=== PATIENT | male | born 1945 | race Caucasian/White ===

== ENCOUNTER 2020-05-18 10:32 | Inpatient (IN) | payer OTHER, SELFPAY ==
[~2020-05-18] VITALS: Ht 175.3 cm; Wt 100.7 kg
[2020-05-18 10:36] VITALS: BP_SYST 126
--- NOTE | 2020-05-18 10:40 | NUR ---
Pt brought to ER via BLS ambulance for SOB at home, pt currently resting in gurney O2 sat WNL on RA, no distress noted, MD stephanie gonzales
--- NOTE | 2020-05-18 10:40 | NUR ---
Placed in room 01 . Placed on bus escort, blood pressure machine and pulse oximeter. To gown for exam. Side rails up.
--- NOTE | 2020-05-18 10:50 | NUR ---
ER at bedside examining patient.
--- NOTE | 2020-05-18 11:11 | NUR ---
Son of pt called in regards to pt status. Requested call for any info or update. TRINA HOWARD: [phone]
--- NOTE | 2020-05-18 11:18 | NUR ---
ER at bedside examining patient.
[2020-05-18] MEDS ORDERED: KETOROLAC TROMETHAMINE 30 MG VIAL IVP ONE (11:30)
[2020-05-18 11:51] LABS: ANION GAP 8 (5-15); CALCIUM 9.2 mg/dL (8.4-11.0); CHLORIDE 105 mmol/L (98-107); CREATININE 0.98 mg/dL (0.55-1.30); GLUCOSE 116 mg/dL (70-99); POTASSIUM 3.7 mmol/L (3.5-5.1); SODIUM SERUM 141 mmol/L (136-145); UREA NITROGEN, BLOOD 16 mg/dL (8-21)
[2020-05-18 11:56] LABS: ALANINE AMINOTRANSFERASE 17 U/L (12-78); ALBUMIN 3.4 g/dL (3.4-4.8); ASPARTATE AMINOTRANSFERASE 13 U/L (10-37); TOTAL BILIRUBIN 0.7 mg/dL (0.0-1.0)
[2020-05-18 12:00] LABS: INR 1.1 (0.80-1.20); PROTHROMBIN TIME 10.9 SECS (9.5-12.5)
[2020-05-18 12:02] LABS: BASOPHILS % (AUTO) 0.3 % (0.0-2.0); EOSINOPHILS % (AUTO) 0.1 % (0.0-4.0); HEMATOCRIT 41.3 % (36-54); HEMOGLOBIN 13.8 g/dL (14.0-18.0); LYMPHOCYTES # (AUTO) 0.3 K/uL (1.0-5.5); LYMPHOCYTES % (AUTO) 2.4 % (20.5-51.5); MEAN CORPUSCULAR HEMOGLOBIN 30 pg (27-31); MEAN CORPUSCULAR HGB CONC 33 % (32-36); MEAN CORPUSCULAR VOLUME 89 fL (79.0-98.0); MONOCYTES # (AUTO) 0.8 K/uL (0.0-1.0); MONOCYTES % (AUTO) 7.1 % (1.7-9.3); NEUTROPHILS # (AUTO) 10.7 K/uL (1.8-7.7); NEUTROPHILS % (AUTO) 90.1 % (40.0-70.0); PLATELET COUNT (AUTO) 187 K/uL (130-430); RED BLOOD CELL COUNT(AUTO) 4.65 MIL/uL (4.2-6.2); RED CELL DISTRIBUTION WIDTH 15.1 % (9.0-15.0); WHITE BLOOD COUNT (AUTO) 11.9 K/uL (4.8-10.8)
--- NOTE | 2020-05-18 12:23 | NUR ---
Pt unable to urinate into urinal, refused catheter at this time MD aware.
[2020-05-18 12:25] LABS: C-REACTIVE PROTEIN QUANT 3.1 mg/dL (0-0.5)
[2020-05-18 12:59] LABS: ERYTHROCYTE SEDIMENTATION RATE 5 MM/HR (0-15)
[2020-05-18] MEDS ORDERED: PIPERACILLIN/TAZO 3.375 GM in NS 50 ML IV ONE (13:00)
[2020-05-18] MEDS ORDERED: PIPERACILLIN/TAZOBACTAM 3.375 GM/VIAL (ZOSYN) IV ONE ×2 (13:25)
[2020-05-18] MEDS ORDERED: NACL 0.9% 1,000 ML IV ONE (13:30)
[2020-05-18] MEDS ORDERED: INSULIN REGULAR, HUMAN 100 UNITS/ML, 10 ML VIAL (humuLIN R) SUBCUT PRN ×2 (13:30→16:00)
[2020-05-18] MEDS ORDERED: FURO-150 PO (13:45)
[2020-05-18] MEDS ORDERED: METF-510 PO (13:45)
[2020-05-18] MEDS ORDERED: MONT10TA27 PO (13:45)
[2020-05-18] MEDS ORDERED: TOPXL100 PO (13:45)
[2020-05-18] MEDS ORDERED: OMEP20CA15 PO (13:45)
[2020-05-18] MEDS ORDERED: WHEY237L PO (13:45)
[2020-05-18] MEDS ORDERED: MELA1TAB29 PO (13:45)
[2020-05-18] MEDS ORDERED: TAMS-11 PO (13:45)
[2020-05-18] MEDS ORDERED: NIFE60TA83 PO (13:45)
[2020-05-18] MEDS ORDERED: CAT.1 PO (13:45)
[2020-05-18] MEDS ORDERED: GLIP5TAB26 PO (13:45)
[2020-05-18] MEDS ORDERED: POTA20TA83 PO (13:45)
--- NOTE | 2020-05-18 13:46 | NUR ---
Medication reconciliation completed with information provided by patient . Any prior medication reconciliation on file was reviewed and corrected.
[2020-05-18 13:47] LABS: BILIRUBIN,URINE NEGATIVE (NEGATIVE); BLOOD, URINE NEGATIVE (NEGATIVE); CLARITY/URINE CLEAR (CLEAR); COLOR,URINE YELLOW (YELLOW); GLUCOSE,URINE NEGATIVE (NEGATIVE); KETONES,URINE NEGATIVE (NEGATIVE); LEUKOCYTE ESTERASE ,URINE NEGATIVE (NEGATIVE); NITRITE, URINE NEGATIVE (NEGATIVE); PH,URINE 5.5 (5.0-8.0); PROTEIN URINE NEGATIVE (NEGATIVE); UROBILINOGEN,URINE 0.2 (0.2-1.0)
[2020-05-18 14:12] LABS: BARBITURATE, URINE NEGATIVE (NEG <=200); BENZODIAZEPINE, URINE NEGATIVE (NEG <=150); CANNABINOID, URINE NEGATIVE (NEG <=50); COCAINE, URINE NEGATIVE (NEG <=150); METHAMPHETAMINES SCREEN,URINE NEGATIVE (NEG <=500); OPIATE, URINE NEGATIVE (NEG <=100); PHENCYCLIDINE SCREEN,URINE NEGATIVE (NEG <=25); UR TRICYCLIC ANTIDEPRESSANTS NEGATIVE (NEG <=300); URINE AMPHETAMINE NEGATIVE (NEG <=500); URINE METHADONE NEGATIVE (NEG <=200); URINE OXYCODONE SCREEN NEGATIVE (NEG <=100); URINE PROPOXYPHENE SCREEN NEGATIVE (NEG <=300)
[2020-05-18] MEDS ORDERED: NACL 0.9% 2,000 ML IV ONE (15:30)
--- NOTE | 2020-05-18 15:30 | NUR ---
Pt resting in [facility] VSS no distress noted.
--- NOTE | 2020-05-18 15:38 | NUR ---
ADMISSION NOTE Received patient from ER via anny, received report from WILLIE DAVIS. Patient admitted with diagnosis of CELLULITUS /SEPSIS. Patient oriented to hospital routine, call light, toileting and safety-patient verbalized understanding.
[2020-05-18 15:57] VITALS: BP_SYST 135
--- NOTE | 2020-05-18 16:05 | NUR ---
Patient will be admitted to care of [facility]. Admitted to TELE unit. Will go to room 110B. Belongings list completed. Complete and up to date summary report printed. SBAR report to be given at bedside with opportunity for questions.
--- NOTE | 2020-05-18 16:30 | NUR ---
ADMISSION: RECEIVED PT A/A/OX4, DX:RISK FOR FLUID VOLUME EXCESS, R/T RIGHT LOWER EXTREMITY CELLULITIS, SEPSIS, AFEBRILE, VSS, NO C/O PAIN OR DISCOMFORT, BREATH SOUNDS ARE CLEAR, BREATHING UNLABORED, RIGHT LEG EDEMATOUS, REDNESS AND WARMTH, ELEVATED ON PILLOW, IV SITE INTACT, PATENT NO REDNESS OR SWELLING, ORIENTED TO UNIT, CALL LIGHT PLACED WITHIN REACH, WILL CONT' TO MONITOR AND ASSESS.
--- NOTE | 2020-05-18 17:30 | NUR ---
GLUCOSE MONITORING: BLOOD SUGAR LEVEL=62, 1 AMP DEXTROSE GIVEN IVP, , POSITIONED UPRIGHT WITH HOB 90 DEGREE, DINNER MEAL PLACED IN REACH, WILL CONT' TO MONITOR AND ASSESS.
[2020-05-18] MEDS: DEXTROSE 50% JECT 50 ML DISP.SYRIN IVP PRN (17:39)
[2020-05-18] MEDS: MONTELUKAST 10 MG TABLET PO SCH (17:39)
[2020-05-18] MEDS ORDERED: QUEtiapine FUMARATE 25 MG TABLET PO SCH (18:00)
--- NOTE | 2020-05-18 18:00 | NUR ---
VISIT: AT BEDSIDE FOR ASSESSMENT OF PT, NEW ORDERS GIVEN, WILL CONT' WITH POC.
--- NOTE | 2020-05-18 18:01 | NUR ---
CONSULTATION PAGED REASON FOR CONSULTATION:CELLULITIS WAS CONSULT CALLED?Y PERSON WHO WAS NOTIFIED:LIBRADO CONSULTING PHYSICIAN:QUINCY FELICIANO WIRELESS TEAM MEMBER SPECIALTY:ID WIRELESS TEAM MEMBER PHONE NUMBER:[phone] REQUESTING PHYSICIAN:ADEN LUGO
--- NOTE | 2020-05-18 19:15 | NUR ---
OPENING NOTE BEDSIDE REPORT RECEIVED FROM DAYSHIFT NURSE. PATIENT RECEIVED LYING IN BED, EYES CLOSED, APPEARS TO BE ASLEEP. NO S/S OF ACUTE DISTRESS NOTED. BREATHING IS EVEN AND UNLABORED. IVF INFUSING WELL, IV SITE IS PATENT, NO SIGNS OF INFILTRATION OR INFECTION NOTED. HOB RAISED. BED IS LOCKED AND AT LOWEST POSITION. WILL CONTINUE TO MONITOR.
[2020-05-18] MEDS ORDERED: FLU VACC QS2020-21(65UP)/PF 0.7 ML/SYRINGE I.M. PRN (19:30)
[2020-05-18 20:00] VITALS: BP_SYST 106
--- NOTE | 2020-05-18 20:30 | NUR ---
RETURNED FROM RADIOLOGY PATIENT RETURNED FROM LUNG SCAN, VIA WHEELCHAIR. PATIENT ASSISTED BACK TO BED. PATIENT TOLERATED WELL. NO SINGS OF DISCOMFORT. PATIENT DENIES PAIN. IVF INFUSING WELL. ALL NEEDS MET. BED ALARM ON. WILL CONTINUE TO MONITOR.
[2020-05-18] MEDS: NACL 0.9% 1,000 ML IV SCH (20:52)
[2020-05-18] MEDS: MELATONIN 3 MG TABLET PO SCH (20:53)
[2020-05-18] MEDS: PYRIDOXINE HCL 50 MG TABLET PO SCH (20:53)
[2020-05-18] MEDS: TAMSULOSIN HCL 0.4 MG CAP PO SCH (20:53)
[2020-05-18] MEDS: cloNIDine HCL 0.1 MG TABLET PO SCH (20:54)
[2020-05-18] MEDS: ENOXAPARIN SODIUM 40 MG/0.4 ML SYRINGE SUBCUT SCH (20:54)
[2020-05-18] MEDS ORDERED: glipiZIDE XL 5 MG TAB ( GLUCOTROL XL) PO SCH (21:00)
--- NOTE | 2020-05-18 22:18 | NUR ---
ROUNDS PATIENT IN BED, SLEEPING COMFORTABLY. NO S/S OF ACUTE DISTRESS NOTED. BREATHING EVEN AND UNLABORED, HOB RAISED. IVF INFUSING WELL. BED ALARM ON. WILL CONTINUE TO MONITOR.
--- NOTE | 2020-05-18 23:40 | NUR ---
NEW IV PATIENT PULLED OUT PREVIOUS IV SITE, CATHETER FULLY INTACT, NO ACTIVE BLEEDING NOTED. NEW IV INSERTED AT RIGHT WRIST, 22 GAUGE. PATIENT TOLERATED WELL. IVF INFUSING. ALL NEEDS MET. BED ALARM ON. WILL CONTINUE TO MONITOR.
[2020-05-19] VITALS: BP_SYST 110
[2020-05-19] MEDS ORDERED: VANCOMYCIN HCL 1 GM/NS PREMIX 250 ML IV ONE (00:30)
[2020-05-19] MEDS: PIPERACILLIN/TAZO 3.375/DEX-IS 50 ML IV SCH ×4 (00:51→23:05)
[2020-05-19] MEDS ORDERED: PIPERACILLIN/TAZOBACTAM 3.375 GM/VIAL (ZOSYN) IV ONE (00:54)
[2020-05-19] MEDS ORDERED: VANCOMYCIN HCL 1000 MG/VIAL IV ONE (00:55)
--- NOTE | 2020-05-19 01:05 | NUR ---
ROUNDS PATIENT IN BED, ASLEEP. NO SIGNS OF DISCOMFORT. HOB RAISED. CHEST RISE AND FALL EVEN BILATERALLY. IV ANTIBIOTIC INFUSING WELL. IV SITE PATENT. BED ALARM ON. WILL CONTINUE TO MONITOR.
--- NOTE | 2020-05-19 03:00 | NUR ---
ROUNDS PATIENT IN BED, REPOSITIONING SELF, ASLEEP. NO S/S OF ACUTE DISTRESS NOTED. BREATHING EVEN AND UNLABORED. IVF INFUSING WELL. BED ALARM ON. WILL CONTINUE TO MONITOR.
[2020-05-19] MEDS: NACL 0.9% 1,000 ML IV SCH ×3 (03:45→18:25)
--- NOTE | 2020-05-19 05:00 | NUR ---
BLOOD DRAW/NIMA CARE ENGINEERING PROGRAM MANAGER AT BEDSIDE, DRAWING BLOOD, PATIENT COOPERATIVE. PATIENT CLEANED AT THIS TIME BY RN. PATIENT TOLERATED WELL. IVF INFUSING WELL. ALL NEEDS MET. BED ALARM ON. WILL CONTINUE TO MONITOR.
[2020-05-19 06:14] LABS: BASOPHILS # (AUTO) 0.2 K/uL (0.0-0.2); BASOPHILS % (AUTO) 1.4 % (0.0-2.0); EOSINOPHILS % (AUTO) 0.1 % (0.0-4.0); HEMATOCRIT 36.2 % (36-54); LYMPHOCYTES % (AUTO) 7.8 % (20.5-51.5); MEAN CORPUSCULAR HEMOGLOBIN 29 pg (27-31); MEAN CORPUSCULAR HGB CONC 33 % (32-36); MEAN CORPUSCULAR VOLUME 89 fL (79.0-98.0); MONOCYTES # (AUTO) 1.3 K/uL (0.0-1.0); MONOCYTES % (AUTO) 10.1 % (1.7-9.3); NEUTROPHILS # (AUTO) 10.3 K/uL (1.8-7.7); NEUTROPHILS % (AUTO) 80.6 % (40.0-70.0); PLATELET COUNT (AUTO) 165 K/uL (130-430); RED BLOOD CELL COUNT(AUTO) 4.09 MIL/uL (4.2-6.2); RED CELL DISTRIBUTION WIDTH 15.5 % (9.0-15.0); WHITE BLOOD COUNT (AUTO) 12.8 K/uL (4.8-10.8)
[2020-05-19] MEDS: DEXTROSE 50% JECT 50 ML DISP.SYRIN IVP PRN ×3 (06:16→17:11)
[2020-05-19 06:44] LABS: ALANINE AMINOTRANSFERASE 14 U/L (12-78); ALBUMIN 2.8 g/dL (3.4-4.8); ANION GAP 7 (5-15); ASPARTATE AMINOTRANSFERASE 21 U/L (10-37); CALCIUM 8.7 mg/dL (8.4-11.0); CHLORIDE 106 mmol/L (98-107); CREATININE 0.85 mg/dL (0.55-1.30); FREE T4 (FREE THYROXINE) 1.1 ng/dl (0.8-1.5); GLUCOSE 50 mg/dL (70-99); POTASSIUM 3.2 mmol/L (3.5-5.1); SODIUM SERUM 141 mmol/L (136-145); THYROID STIMULATING HORMONE 0.53 uIu/mL (0.36-3.74); UREA NITROGEN, BLOOD 19 mg/dL (8-21)
--- NOTE | 2020-05-19 06:48 | NUR ---
CLOSING NOTE/HYPOGLYCEMIA PATIENT IN BED ASLEEP AT THIS TIME. NO S/S OF ACUTE DISTRESS NOTED. BREATHING IS EVEN AND UNLABORED. IVF INFUSING WELL, IV IS PATENT, NO SIGNS OF INFILTRATION OR INFECTION NOTED. SKIN WARM AND DRY TO TOUCH. ACCUCHECK DONE, BS WAS 62, D5 GIVEN, RECHECKED AFTER 15 MINUTES, BS WAS AT 125. WILL INFORM MD. ALL NEEDS MET THROUGHOUT SHIFT. FALL SAFETY PRECAUTIONS MAINTAINED THROUGHOUT SHIFT. WILL CONTINUE TO MONITOR UNTIL PATIENT CARE IS ENDORSED TO ONCOMING DAYSHIFT NURSE.
--- NOTE | 2020-05-19 06:55 | NUR ---
ATTENDING MD DR PARSONS WAS CALLED, RE: CRITICAL BS. SPOKE TO DWAYNE.
--- NOTE | 2020-05-19 06:57 | NUR ---
TALKED TO DR PARSONS RE:HYPOGLYCEMIA DR. PARSONS MADE AWARE THAT BS WAS AT 62, D50 GIVEN, SUGAR RECHECKED, IT WENT UP TO 125. MD ORDERED TO STOP GLIPIZIDE AND TO MAKE SURE PATIENT EATS BREAKFAST. WILL CARRY OUT ORDERS AND ENDORSE TO DAYSHIFT NURSE.
--- NOTE | 2020-05-19 07:59 | NUR ---
opening notes, received pt in bed, snoring, asleep, no s/s of pain , no sob, vitals wnl. no fever. safety precaution in place, call light in reach, bed in low position, bad alarm on. will cont to monitor.
[2020-05-19 08:00] VITALS: BP_SYST 126
--- NOTE | 2020-05-19 08:33 | NUR ---
pt woke up, speech is garbled, wanted to go to bathroom, pt wanted to get out of bed, but not opening his eyes, pt gets agitated a little bit, explained to pt that he has to use the urinal to prevent prevent fall. pt voided in the urinal, pt pulled up and offered breakfast, pt went back to sleep after breakfast tray is set up. will cont to monitor.
[2020-05-19] MEDS: VANCOMYCIN HCL 1,500 MG in NS 250 ML IV SCH ×2 (08:57→20:43)
[2020-05-19] MEDS: cloNIDine HCL 0.1 MG TABLET PO SCH ×3 (09:00→20:57)
[2020-05-19] MEDS ORDERED: TAMSULOSIN HCL 0.4 MG CAP PO SCH (09:00)
[2020-05-19] MEDS ORDERED: VANCOMYCIN HCL 1,250 MG in NS 250 ML IV SCH (09:00)
[2020-05-19] MEDS ORDERED: POTASSIUM CHLORIDE 20 MEQ TAB.PRT.SR PO SCH ×2 (09:00→21:00)
[2020-05-19] MEDS: TAMSULOSIN HCL 0.4 MG CAP PO SCH ×2 (09:13→20:41)
[2020-05-19] MEDS: METOPROLOL SUCCINATE 50 MG TAB.SR.24H (TOPROL XL) PO SCH (09:14)
[2020-05-19] MEDS: NIFEdipine 30 MG TAB.ER.24 PO SCH (09:15)
[2020-05-19] MEDS: PANTOPRAZOLE SODIUM 40 MG TAB PO SCH (09:15)
[2020-05-19] MEDS ORDERED: POTASSIUM CHLORIDE 20 MEQ TAB.PRT.SR PO ONE (09:15)
[2020-05-19] MEDS: FUROSEMIDE 20 MG TABLET PO SCH (09:15)
--- NOTE | 2020-05-19 09:20 | NUR ---
NO ANTI-PSYCHOTIC DRUGS PER SON REKHA, TEL NO [phone], PT CANNOT TAKE ANTI-PSYCHOTIC DRUGS FOR HALLUCINATION THEY MAKE HIS CONDITION WORSE, ONLY MELATONIN. DR PARSONS WAS HERE AND MADE AWARE
--- NOTE | 2020-05-19 09:51 | NUR ---
Nutrition Update Sandro Scale 18 noted. Pt admitted for cellulitis/sepsis. Diet: cardiac BMI: 32.8 kg/m2 RD to follow per nutrition care standards.
--- NOTE | 2020-05-19 11:15 | NUR ---
PT NOW SLEEPING , SITTING ON THE CHAIR, PT WAS ASSISTED TO CHAIR MOD ASSIST, PT WAS WOBBLY BUT ABLE REGAIN BALANCE. CONTINUING MONITORING PT.
--- NOTE | 2020-05-19 12:47 | NUR ---
PT SITTING ON THE CHAIR. BLOOD SUGAR WAS 68, PT ABLE TO TAKE PO. GIVEN ORANGE JUICE.
[2020-05-19 12:50] VITALS: BP_SYST 92
--- NOTE | 2020-05-19 13:07 | NUR ---
BLOOD SUGAR NOW 198, PT GIVEN D50 Addendum: 05/19/20 at 1720 by Keyur Sweeney RN DR PARSONS MADE AWARE , ORDERED TO DC METFORMIN.
--- NOTE | 2020-05-19 14:03 | NUR ---
CONSULTATION PAGED/CALLED Reason for Consultation: [] CONFUSION Person Who was Notified: [] DR Cherry ELLIS Consulting Physician: [] DR Cherry ELLIS Community Education Specialist Specialty: [] NEURO Ordering Physician: [] DR PARSONS
--- NOTE | 2020-05-19 14:22 | NUR ---
[employer] Set Up Operator Vertical: EMERGENCY VETERINARY ASSISTANT received a referral to see pt. , "Needs Manager Of Procurement" EMERGENCY VETERINARY ASSISTANT spoke with Rn. who stated pt. is doing ok. He has been sleepy and has not eaten his lunch. Rn stated son called and did not want his dad to have any psych. meds. only melatonin to assist him in sleeping. Son stated psych meds make his symptoms worse. Rn stated pt. has been seen talking to himself. Rn feels pt. may be hallucinating. EMERGENCY VETERINARY ASSISTANT introduced self to pt. He was easily awaken. EMERGENCY VETERINARY ASSISTANT stated she was sorry she had to meet him under such circumstances. Pt. agreed and said, "Me too!!". During this interview, pt. looked away from EMERGENCY VETERINARY ASSISTANT and began talking to someone, but there was noone present. EMERGENCY VETERINARY ASSISTANT was able to redirect pt. who remained calm and continued to participate in the interview. Pt. deferred to his son stating, "You can call my son, Jam and he will tell you..." . Pt denied having any depression, anxiety or any other MH Dx. He also denied feeling suicidal. EMERGENCY VETERINARY ASSISTANT thanked pt. for his help and told him how he can reach her if he needed to speak to her. EMERGENCY VETERINARY ASSISTANT will call pts. son. Addendum: 05/19/20 at 1504 by Rosa BURRIS [employer] Set Up Operator Vertical: Call pts. son EMERGENCY VETERINARY ASSISTANT spoke to pts. son, Jam [facility], [facility] [phone] & (home)[phone]. He was informative and when asked, stated his dad does not have any mental health issues nor has he ever been Dx. Son Chang stated his dad is confused because he is so tired. He does not get much sleep, only 2 hours per night. He did mention pt. had knee surgery about 17 years ago. At that time. he was given anxiety medication. Pts. son feels pt. is so exhausted, this is resulting in hallucinations. He added psych meds make everything worse. He has had to take his dad off meds in the past. When pt. is hospitalized or goes to the Dr. they all prescribe something and the various medications "mess him up" as reported by son. Pts. son stated when pt. stayed with him for about two weeks, he put a monitor on and discovered pt. only sleeps 2 hours per night. Pt. said his dad lives at [address] [address] [facility]. He gets interrupted all through out the day and night by caregivers giving him meds, taking vitals, checking on him, giving him meals. Below pts. room, he can hear when [facility] has live music. All resulting in poor sleep and hallucinations. Chang stated he has bought his dad a new bed and is setting up PT. EMERGENCY VETERINARY ASSISTANT thanked him for all his assistance. EMERGENCY VETERINARY ASSISTANT spoke to Rn.to share this info with him. EMERGENCY VETERINARY ASSISTANT will remain available as needed.
--- NOTE | 2020-05-19 16:50 | NUR ---
PT AMBULATED IN THE HOUSE WAY WITH ASSIST FROM RN , PT USED FWW. PT TOLERATED WELL.
[2020-05-19] MEDS: MONTELUKAST 10 MG TABLET PO SCH (17:12)
[2020-05-19 17:15] VITALS: BP_SYST 106
--- NOTE | 2020-05-19 17:16 | NUR ---
ATTENDING MD DR PARSONS WAS CALLED, RE: LOW BS OF 68. SPOKE TO SYDNEE.
--- NOTE | 2020-05-19 17:17 | NUR ---
DR PARSONS MADE AWARE OF PT'S BS, ORDERED TO CHECK PT'S BELONGING PT MAY BE TAKING HIS OWN MEDS, TOLD MD THAT PT HAS NO BAG AND NO MEDICATION, MD ORDERED TO DC INSULIN COVERAGE AND BLOOD SUGAR Q4 HOURS.
--- NOTE | 2020-05-19 17:18 | NUR ---
1700 BLOOD SUGAR WAS 68 AND 67, PT GIVEN D50, BLOOD SUGAR WENT UP TO 161. DR PARSONS WAS PAGED TO MAKE AWARE.
--- NOTE | 2020-05-19 18:27 | NUR ---
PT ATE MOST OF HIS FOOD FOR DINNER BY HIMSELF, WILL CONT TO MONITOR.
--- NOTE | 2020-05-19 19:35 | NUR ---
CLOSING NOTES DR PARSONS IS HERE , MADE AWARE THAT PT PULLED OUT HIS IV ACCESS, GAVE ORDER OF PLACE PT ON RESTRAINT BUT TELL PT'S SON REKHA, CALLED REKHA AND MADE AWARE AND REKHA ALSO SPOKE TO PATIENT. ENDORSED TO NIGHT RN THAT PT HAS NO IV ACCESS AT THIS TIME AND IF SHE CAN START THE RESTRAIN IF SHE FEELS PT NEEDS IT FOR TONIGHT, ALSO NEEDS TO EXPLAIN TO PATIENT WHY WE NEED TO PUT HIM ON RESTRAINT AND IV ACCESS.
[2020-05-19 20:00] VITALS: BP_SYST 92
--- NOTE | 2020-05-19 20:00 | NUR ---
INITIAL NOTES PATIENT IS STABLE AND LAYING IN BED. NEW IV INSERTED ON RIGHT FOREARM 20G. BLOOD RETURN NOTED AND FLUSHED WELL. NO S/S OF RESPIRATORY DISTRESS NOTED. CALL LIGHT IN REACH. PATIENT UNSUCCESSFULLY DEMONSTRATES USAGE OF CALL LIGHT. BED IS LOCKED, ALARMED, AND AT THE LOWEST POSITION. FALL, SAFETY, ASPIRATION, AND RESPIRATORY PRECAUTIONS WILL BE IN PLACE THROUGHOUT THE SHIFT. RESTRAINTS WERE PUT ON AT THIS TIME. PT IS TRYING TO PULL OUT HIS IV AND IS TRYING TO GET OUT OF BED. Addendum: 05/20/20 at 0358 by Asha Pisano RN FAMILY WAS CALLED TO RE-ORIENT THE PATIENT. FAMILY MADE AWARE OF PT BEING ON RESTRAINTS.
[2020-05-19] MEDS: DOCUSATE SODIUM 250 MG CAPSULE PO SCH (20:41)
[2020-05-19] MEDS: PYRIDOXINE HCL 50 MG TABLET PO SCH (20:42)
[2020-05-19] MEDS: POTASSIUM CHLORIDE 20 MEQ TAB.PRT.SR PO SCH (20:42)
[2020-05-19] MEDS: MELATONIN 3 MG TABLET PO SCH (20:42)
[2020-05-19] MEDS: ENOXAPARIN SODIUM 40 MG/0.4 ML SYRINGE SUBCUT SCH (20:53)
[2020-05-19] MEDS: TERBINAFINE HCL 1%, 24 GM antifungal CREAM TP SCH (20:57)
[2020-05-19] MEDS: AMMONIUM LACTATE 12%, 400 ML LOTION TP SCH (20:57)
--- NOTE | 2020-05-19 22:00 | NUR ---
PATIENT REQUESTED ORANGE JUICE AT THIS TIME. PATIENT IS STABLE AND LAYING IN BED. NO S/S OF RESPIRATORY DISTRESS NOTED. CALL LIGHT IN REACH.
[2020-05-20] VITALS: BP_SYST 105
--- NOTE | 2020-05-20 | NUR ---
PT URINATED ON CHUCKS AND IS BECOME COMBATIVE WHEN CHANGING. PT TRIED TO HIT THE NURSE AND GRABBED THE NURSES AID. PT IS CONFUSED. RE-ORIENTED PT. RE-ORIENTATION FAILED. RESTRAINTS WERE PUT BACK ON. WILL CONTINUE TO MONITOR.
--- NOTE | 2020-05-20 02:00 | NUR ---
PATIENT WAS GETTING AGITATED. PT PULLED HIS RESTRAINTS OUT AT THIS TIME. PT IS GETTING AGITATED AND IS PUSHING ME TO GET OUT OF BED. RE-ORIENTED PT. RE-ORIENTATION FAILED. PT STATES THAT HE IS NOT IN THE HOSPITAL AND WANTS TO CALL THE NATIONAL GUARD. PT IS GRABBING THE NURSES ARMS AND THREATENS TO PUNCH. PATIENT IS KICKING. PT WAS PLACED BACK IN RESTRAINTS AND EDUCATED/RE-ORIENTED AGAIN.
--- NOTE | 2020-05-20 04:00 | NUR ---
PATIENT IS STABLE IN BED. NO S/S OF RESPIRATORY DISTRESS NOTED. CALL LIGHT IN REACH.
[2020-05-20] MEDS: PIPERACILLIN/TAZO 3.375/DEX-IS 50 ML IV SCH ×3 (05:10→23:02)
[2020-05-20 05:13] LABS: BASOPHILS # (AUTO) 0.1 K/uL (0.0-0.2); BASOPHILS % (AUTO) 0.9 % (0.0-2.0); EOSINOPHILS # (AUTO) 0.1 K/uL (0.0-0.4); EOSINOPHILS % (AUTO) 1.2 % (0.0-4.0); HEMOGLOBIN 11.8 g/dL (14.0-18.0); LYMPHOCYTES # (AUTO) 1.1 K/uL (1.0-5.5); LYMPHOCYTES % (AUTO) 9.5 % (20.5-51.5); MEAN CORPUSCULAR HEMOGLOBIN 30 pg (27-31); MEAN CORPUSCULAR HGB CONC 34 % (32-36); MEAN CORPUSCULAR VOLUME 88 fL (79.0-98.0); MONOCYTES # (AUTO) 1.2 K/uL (0.0-1.0); MONOCYTES % (AUTO) 9.9 % (1.7-9.3); NEUTROPHILS # (AUTO) 9.3 K/uL (1.8-7.7); NEUTROPHILS % (AUTO) 78.5 % (40.0-70.0); PLATELET COUNT (AUTO) 160 K/uL (130-430); RED BLOOD CELL COUNT(AUTO) 3.98 MIL/uL (4.2-6.2); RED CELL DISTRIBUTION WIDTH 15.8 % (9.0-15.0); WHITE BLOOD COUNT (AUTO) 11.9 K/uL (4.8-10.8)
[2020-05-20 05:36] LABS: ALANINE AMINOTRANSFERASE 20 U/L (12-78); ALBUMIN 2.6 g/dL (3.4-4.8); ANION GAP 3 (5-15); ASPARTATE AMINOTRANSFERASE 19 U/L (10-37); CALCIUM 8.8 mg/dL (8.4-11.0); CHLORIDE 103 mmol/L (98-107); CREATININE 0.97 mg/dL (0.55-1.30); GLUCOSE 97 mg/dL (70-99); POTASSIUM 3.4 mmol/L (3.5-5.1); SODIUM SERUM 135 mmol/L (136-145); TOTAL BILIRUBIN 0.8 mg/dL (0.0-1.0); UREA NITROGEN, BLOOD 16 mg/dL (8-21)
--- NOTE | 2020-05-20 06:00 | NUR ---
CLOSING NOTES PATIENT IS STABLE AND LAYING IN BED. NO S/S OF RESPIRATORY DISTRESS NOTED. CALL LIGHT IN REACH. BED IS LOCKED, ALARMED, AND AT THE LOWEST POSITION. FALL, SAFETY, ASPIRATION, RESTRAINTS, AND RESPIRATORY PRECAUTIONS HAS BEEN IN PLACE THROUGHOUT THE SHIFT. WILL CONTINUE TO MONITOR UNTIL SBAR REPORT IS ENDORSED TO AM NURSE BY BEDSIDE.
[2020-05-20 08:00] VITALS: BP_SYST 125
--- NOTE | 2020-05-20 08:00 | NUR ---
Opening Notes/Blood Sugar Patient is awake, alert and oriented x2. Patient is intermittently confused and forgetful. No resp distress noted. Breathing is even and unlabored. Pt denies any pain at this time. Pt is eating breakfast independently, no swallowing issues noted. Soft wrist bilateral restraints are off at this time. No agitation noted. IV site on right FA 20 gauge intact at this time, saline lock. Flushing well. Dressing is clean and dry. Patients blood sugar noted at 116 mg/dL. No coverage needed at this time. All needs met at this time. Safety and fall precautions in place. Bed in lowest position, alarm on, locked. Will continue to monitor.
[2020-05-20] MEDS: VANCOMYCIN HCL 1,500 MG in NS 250 ML IV SCH ×2 (08:33→20:35)
[2020-05-20] MEDS: PANTOPRAZOLE SODIUM 40 MG TAB PO SCH (08:33)
[2020-05-20] MEDS: METOPROLOL SUCCINATE 50 MG TAB.SR.24H (TOPROL XL) PO SCH (08:34)
[2020-05-20] MEDS: NIFEdipine 30 MG TAB.ER.24 PO SCH (08:34)
[2020-05-20] MEDS: DOCUSATE SODIUM 250 MG CAPSULE PO SCH ×2 (08:34→20:34)
[2020-05-20] MEDS: POTASSIUM CHLORIDE 20 MEQ TAB.PRT.SR PO SCH ×3 (08:35→20:33)
[2020-05-20] MEDS: FUROSEMIDE 20 MG TABLET PO SCH (08:35)
[2020-05-20] MEDS: TAMSULOSIN HCL 0.4 MG CAP PO SCH ×2 (08:35→20:33)
[2020-05-20] MEDS: cloNIDine HCL 0.1 MG TABLET PO SCH ×3 (08:36→20:33)
[2020-05-20] MEDS: AMMONIUM LACTATE 12%, 400 ML LOTION TP SCH ×2 (09:00→20:40)
[2020-05-20] MEDS: TERBINAFINE HCL 1%, 24 GM antifungal CREAM TP SCH ×2 (09:00→20:40)
--- NOTE | 2020-05-20 10:11 | NUR ---
Notes Patient is laying in bed, sleeping at this time. No resp distress noted. Breathing is even and unlabored. Restraints continue to off at this time. No agitation noted. Will continue to monitor.
--- NOTE | 2020-05-20 11:20 | NUR ---
Confusion Patient is confused. Per patient, "Please tell that dog to get off my bed. I told him that I didnt need that part of the skin. He doesnt know I like the coffee. Why does the computer make that noise?" Nurse was able to reorient patient. No resp distress noted. Breathing is even and unlabored. Will continue to monitor.
[2020-05-20 12:00] VITALS: BP_SYST 134
[2020-05-20] MEDS ORDERED: MULTIVITS,CA,MINERALS/IRON/FA 1 TABLET PO ONE (12:00)
--- NOTE | 2020-05-20 12:00 | NUR ---
Notes/Blood Sugar Patients blood sugar was noted at 132 mg/dL. No coverage at this time. Patient is laying in bed resting. Restraints remain off at this time. No agitation at this time. Will continue to monitor.
[2020-05-20] MEDS ORDERED: BALSAM PERU/CASTOR OIL 60 GM OINT...G. TP ONE (13:30)
--- NOTE | 2020-05-20 14:23 | NUR ---
Notes/Confusion Patient is attempting to get out of bed, unassisted. Nurse was able to reorient the patient and educated the patient to stay in bed to prevent the risk of falls. Patient agreed but easily forgets within a couple minutes. No agitation noted. No resp distress noted. Breathing is even and unlabored. Denies any pain. Will continue to monitor.
[2020-05-20 16:00] VITALS: BP_SYST 135
--- NOTE | 2020-05-20 16:00 | NUR ---
Notes/Blood Sugar Patients blood sugar was noted at 151 mg/dL. No coverage at this time. Patient is laying in bed resting. Restraints remain off at this time. No agitation at this time. Will continue to monitor.
[2020-05-20] MEDS: MONTELUKAST 10 MG TABLET PO SCH (17:02)
--- NOTE | 2020-05-20 17:07 | NUR ---
Dietitian Recommendations * Recommend cardiac diet w/ Ensure Enlive BID (ONS provides 700 kcal/day, 40 gm protein/day) SIRENA CUELLO Please refer to Nutrition Assessment for details. Addendum: 05/20/20 at [address] Amended: Links added.
--- NOTE | 2020-05-20 19:00 | NUR ---
Closing Notes Patient is awake, alert and oriented x1. Pt is intermittently confused and attempts to get out of bed. Restraints are off at this time. NO resp distress noted. Breathing is even and unlabored. Pt denies any pain at this time. Nurse assisted patient to call his son, Chang. Pt left son a voicemail, awaiting call back. IV site on right FA, 20 gauge intact at this time, saline lock. Flushing well. Wrapped in gauze dressing. Patient ate 75% of dinner. All needs met at this time. Safety and fall precautions in place. Bed in lowest position, alarm on, locked. Will continue to monitor.
[2020-05-20 20:00] VITALS: BP_SYST 104
--- NOTE | 2020-05-20 20:00 | NUR ---
INITIAL NOTES PATIENT IS CURRENTLY TRYING TO GET OUT OF BED. REORIENTED PATIENT. REORIENTATION FAILED. PT STATES HE IS NOT IN THE HOSPITAL. WILL CONTINUE TO REORIENT. PATIENT VITALS ARE STABLE. NO S/S OF RESPIRATORY DISTRESS NOTED. CALL LIGHT IN REACH. BED IS LOCKED, ALARMED, AND AT THE LOWEST POSITION. FALL, SAFETY, ASPIRATION, AND RESPIRATORY PRECAUTIONS WILL BE IN PLACE THROUGHOUT THE SHIFT. PLAN OF CARE IS DISCUSSED WITH PATIENT. PATIENT UNSUCCESSFULLY DEMONSTRATES USAGE OF CALL LIGHT. WILL CONTINUE TO MONITOR.
[2020-05-20] MEDS: PYRIDOXINE HCL 50 MG TABLET PO SCH (20:34)
[2020-05-20] MEDS: MELATONIN 3 MG TABLET PO SCH (20:36)
[2020-05-20] MEDS: BALSAM PERU/CASTOR OIL 60 GM OINT...G. TP SCH (20:40)
[2020-05-20] MEDS: ENOXAPARIN SODIUM 40 MG/0.4 ML SYRINGE SUBCUT SCH (20:45)
--- NOTE | 2020-05-20 22:00 | NUR ---
PATIENT IS CONFUSED AND TRYING TO GET OUT OF BED. RE-ORIENTED PATIENT. PATIENT IS REPOSITION IN BED. NO S/S OF RESPIRATORY DISTRESS NOTED. CALL LIGHT IN REACH.
[2020-05-21] VITALS: BP_SYST 101
--- NOTE | 2020-05-21 | NUR ---
PATIENT IS STABLE AND LAYING IN BED. NO S/S OF RESPIRATORY DISTRESS NOTED. CALL LIGHT IN REACH.
--- NOTE | 2020-05-21 02:00 | NUR ---
PATIENT IS CONFUSED AGAIN. PATIENT IS TRYING TO GET OUT OF BED. RE-ORIENTED PATIENT. RE-ORIENTATION FAILED. WILL CONTINUE TO MONITOR. NO S/S OF RESPIRATORY DISTRESS NOTED. CALL LIGHT IN REACH.
--- NOTE | 2020-05-21 04:00 | NUR ---
PATIENT IS CONFUSED IS TRYING TO GET OUT OF BED. REPOSITION PATIENT AND RE-ORIENTED PATIENT. NO S/S OF RESPIRATORY DISTRESS NOTED. CALL LIGHT IN REACH.
[2020-05-21] MEDS: PIPERACILLIN/TAZO 3.375/DEX-IS 50 ML IV SCH (05:46)
--- NOTE | 2020-05-21 06:38 | NUR ---
CLOSING NOTES PATIENT WAS NOTED TO BE TALKING TO THE WALL AT THIS TIME. PT SAID HE WAS WAITING IN LINE WITH THE OTHERS. PT WAS POINTING TO THE WALL. RE-ORIENTED PATIENT. PATIENT ASKED WHERE HE WAS AND WHO HIS DOCTOR WAS. PT WAS RE-ORIENTED. PATIENT IS OTHERWISE STABLE. NO S/S OF RESPIRATORY DISTRESS NOTED. CALL LIGHT IN REACH. BED IS LOCKED, ALARMED, AND AT THE LOWEST POSITION. FALL, SAFETY, ASPIRATION, AND RESPIRATORY PRECAUTIONS HAS BEEN IN PLACE THROUGHOUT THE SHIFT. WILL CONTINUE TO MONITOR UNTIL SBAR REPORT IS ENDORSED TO AM NURSE.
--- NOTE | 2020-05-21 07:05 | NUR ---
OPENING NOTE RECEIVED BEDSIDE SBAR FROM NIGHT RN, PATIENT IN BED, RESPIRATIONS EVEN, NON LABORED, BED IN LOW AND LOCKED POSITION, CALL LIGHT WITHIN REACH, BED ALARM ON
[2020-05-21 08:00] VITALS: BP_SYST 145
--- NOTE | 2020-05-21 08:00 | NUR ---
NURSE NOTE OBTAINED, VS, PATIENT IN BED, RESPIRATIONS EVEN, NON LABORED, BED IN LOW AND LOCKED POSITION, CALL LIGHT WITHIN REACH, BED ALARM ON.
[2020-05-21] MEDS: PANTOPRAZOLE SODIUM 40 MG TAB PO SCH (08:29)
[2020-05-21] MEDS: POTASSIUM CHLORIDE 20 MEQ TAB.PRT.SR PO SCH ×3 (08:29→21:12)
[2020-05-21] MEDS: FUROSEMIDE 20 MG TABLET PO SCH (08:29)
[2020-05-21] MEDS: METOPROLOL SUCCINATE 50 MG TAB.SR.24H (TOPROL XL) PO SCH (08:30)
[2020-05-21] MEDS: NIFEdipine 30 MG TAB.ER.24 PO SCH (08:30)
[2020-05-21] MEDS: cloNIDine HCL 0.1 MG TABLET PO SCH ×4 (08:30→21:12)
[2020-05-21] MEDS: MULTIVITS,CA,MINERALS/IRON/FA 1 TABLET PO SCH (08:30)
[2020-05-21] MEDS: DOCUSATE SODIUM 250 MG CAPSULE PO SCH ×2 (08:30→21:12)
[2020-05-21] MEDS: TAMSULOSIN HCL 0.4 MG CAP PO SCH ×3 (08:30→21:12)
[2020-05-21] MEDS: AMMONIUM LACTATE 12%, 400 ML LOTION TP SCH ×2 (08:32→21:33)
[2020-05-21] MEDS: TERBINAFINE HCL 1%, 24 GM antifungal CREAM TP SCH ×2 (08:32→21:32)
[2020-05-21] MEDS: BALSAM PERU/CASTOR OIL 60 GM OINT...G. TP SCH ×2 (08:32→21:31)
--- NOTE | 2020-05-21 08:45 | NUR ---
INSULIN INFORMED DR PARSONS OF PATIENTS BS, AND THAT THE PATIENT DOES NOT HAVE A SLIDING SCALE ORDERED, PER DR PARSONS DOES NOT NEED TO HAVE AN ORDER FOR SLIDING SCALE
[2020-05-21] MEDS: VANCOMYCIN HCL 1,500 MG in NS 250 ML IV SCH ×2 (09:00→21:13)
[2020-05-21] MEDS ORDERED: metFORMIN HCL 500 MG TABLET PO ONE (10:00)
--- NOTE | 2020-05-21 10:00 | NUR ---
NURSE NOTE PATIENT IN BED, EYES CLOSED, RESPIRATIONS EVEN, NON LABORED, BED IN LOW AND LOCKED POSITION, CALL LIGHT WITHIN REACH, BED ALARM ON
--- NOTE | 2020-05-21 11:00 | NUR ---
NURSE NOTE ASSISTED PATIENT CALL SONREKHA, BED IN LOW AND LOCKED POSITION, CALL LIGHT WITHIN REACH, BED ALARM ON
[2020-05-21 12:35] LABS: BASOPHILS % (AUTO) 0.7 % (0.0-2.0); EOSINOPHILS # (AUTO) 0.1 K/uL (0.0-0.4); HEMATOCRIT 35.1 % (36-54); HEMOGLOBIN 11.8 g/dL (14.0-18.0); LYMPHOCYTES # (AUTO) 1.1 K/uL (1.0-5.5); LYMPHOCYTES % (AUTO) 14.2 % (20.5-51.5); MEAN CORPUSCULAR HEMOGLOBIN 30 pg (27-31); MEAN CORPUSCULAR HGB CONC 34 % (32-36); MEAN CORPUSCULAR VOLUME 88 fL (79.0-98.0); MONOCYTES # (AUTO) 0.5 K/uL (0.0-1.0); MONOCYTES % (AUTO) 7.3 % (1.7-9.3); NEUTROPHILS # (AUTO) 5.6 K/uL (1.8-7.7); NEUTROPHILS % (AUTO) 75.8 % (40.0-70.0); PLATELET COUNT (AUTO) 173 K/uL (130-430); RED BLOOD CELL COUNT(AUTO) 3.98 MIL/uL (4.2-6.2); RED CELL DISTRIBUTION WIDTH 15.2 % (9.0-15.0); WHITE BLOOD COUNT (AUTO) 7.4 K/uL (4.8-10.8)
[2020-05-21 12:38] VITALS: BP_SYST 135
[2020-05-21 12:44] LABS: ANION GAP 3 (5-15); CALCIUM 8.8 mg/dL (8.4-11.0); CHLORIDE 103 mmol/L (98-107); CREATININE 0.81 mg/dL (0.55-1.30); GLUCOSE 227 mg/dL (70-99); POTASSIUM 4.6 mmol/L (3.5-5.1); SODIUM SERUM 135 mmol/L (136-145); UREA NITROGEN, BLOOD 10 mg/dL (8-21)
--- NOTE | 2020-05-21 13:29 | NUR ---
nurse note patient incontinent of bladder, cleansed maryan area, changed linens, and gown, repositioned patient, denies any pain or discomfort
--- NOTE | 2020-05-21 16:12 | NUR ---
nurse note wound care see mst shift assessment, patient tolerated well, denies any pain or discomfort
[2020-05-21 16:27] VITALS: BP_SYST 129
[2020-05-21] MEDS: MONTELUKAST 10 MG TABLET PO SCH (18:12)
[2020-05-21] MEDS: metFORMIN HCL 500 MG TABLET PO SCH (18:12)
--- NOTE | 2020-05-21 19:10 | NUR ---
CLOSING NOTES PROVIDED BEDSIDE SBAR TO NIGHT RN, PATIENT IN BED, RESPIRATIONS EVEN, NON LABORED, BED IN LOW AND LOCKED POSITION, CALL LIGHT WITHIN REACH, BED ALARM ON. ENDORSED CARE TO NIGHT RN
--- NOTE | 2020-05-21 19:30 | NUR ---
OPENING NOTES: Received report from dayshift nurse. Patient is alert and oriented to name and is confused. He has IV on RFA with dry dressing. Patient is on room air with unlabored breathing. Ensured all safety precautions. Bed is in the lowest position with alarm on, call light within reach.
[2020-05-21 20:00] VITALS: BP_SYST 129
[2020-05-21] MEDS ORDERED: TERBINAFINE HCL 1%, 24 GM antifungal CREAM TP SCH (21:00)
[2020-05-21] MEDS: MELATONIN 3 MG TABLET PO SCH (21:00)
[2020-05-21] MEDS: ENOXAPARIN SODIUM 40 MG/0.4 ML SYRINGE SUBCUT SCH (21:00)
--- NOTE | 2020-05-21 21:00 | NUR ---
MEDICATIONS ADMINISTRATION: Patient is laying in bed alert to name. Accucheck was done, BG was 139. Medications were administered as ordered however, patient declined Lovenox and melatonin despite education. He states he will not have an injection of anything and declined several times. Will continue to monitor patient.
[2020-05-21] MEDS: PYRIDOXINE HCL 50 MG TABLET PO SCH (21:13)
--- NOTE | 2020-05-22 00:15 | NUR ---
RN ROUNDS / ACCUCHECK: Patient is laying in bed with no s/s of distress or discomfort. He aware and alert to name. Patient has unlabored breathing on room air. Accucheck was done at this time. BG was 114. Will continue to monitor patient.
--- NOTE | 2020-05-22 02:00 | NUR ---
RN ROUNDS: Patient is laying in bed and appears to be asleep. He is not exhibiting any s/s of distress or discomfort. Bed is locked and in the lowest position, call light within reach. Will continue to monitor patient.
[2020-05-22 03:59] VITALS: BP_SYST 143
[2020-05-22 06:15] LABS: BASOPHILS # (AUTO) 0.1 K/uL (0.0-0.2); BASOPHILS % (AUTO) 0.7 % (0.0-2.0); EOSINOPHILS # (AUTO) 0.3 K/uL (0.0-0.4); EOSINOPHILS % (AUTO) 3.1 % (0.0-4.0); HEMOGLOBIN 12.1 g/dL (14.0-18.0); LYMPHOCYTES # (AUTO) 1.4 K/uL (1.0-5.5); LYMPHOCYTES % (AUTO) 15.7 % (20.5-51.5); MEAN CORPUSCULAR HEMOGLOBIN 30 pg (27-31); MEAN CORPUSCULAR HGB CONC 34 % (32-36); MEAN CORPUSCULAR VOLUME 88 fL (79.0-98.0); MONOCYTES # (AUTO) 0.8 K/uL (0.0-1.0); MONOCYTES % (AUTO) 9.2 % (1.7-9.3); NEUTROPHILS # (AUTO) 6.3 K/uL (1.8-7.7); NEUTROPHILS % (AUTO) 71.3 % (40.0-70.0); PLATELET COUNT (AUTO) 189 K/uL (130-430); RED BLOOD CELL COUNT(AUTO) 4.09 MIL/uL (4.2-6.2); WHITE BLOOD COUNT (AUTO) 8.9 K/uL (4.8-10.8)
--- NOTE | 2020-05-22 06:30 | NUR ---
CLOSING NOTES: Patient laying in bed watching TV, states he is feeling well and is alert to name, unsure where he is at. I have reoriented patient to place. He has IV on RFA with dry dressing, patent and intact. Patient is on room air with unlabored breathing. Ensured all safety precautions. Bed is in the lowest position with alarm on, call light within reach. All needs were met throughout shift. Will endorse to dayshift nurse.
[2020-05-22 06:34] LABS: ANION GAP 5 (5-15); CALCIUM 8.9 mg/dL (8.4-11.0); CHLORIDE 105 mmol/L (98-107); CREATININE 0.76 mg/dL (0.55-1.30); GLUCOSE 120 mg/dL (70-99); POTASSIUM 4.2 mmol/L (3.5-5.1); SODIUM SERUM 140 mmol/L (136-145); UREA NITROGEN, BLOOD 11 mg/dL (8-21)
[2020-05-22 08:00] VITALS: BP_SYST 143
--- NOTE | 2020-05-22 08:08 | NUR ---
PATIENT SEEN SITTING UP IN BED AND EATING BREAKFAST. TOLERATING WELL. PATIENT APPEARS CONFUSED. ALERT, AWAKE, ORIENTED X2. WILL CONTINUE TO MONITOR.
[2020-05-22] MEDS: TERBINAFINE HCL 1%, 24 GM antifungal CREAM TP SCH ×2 (09:00→20:58)
[2020-05-22] MEDS: POTASSIUM CHLORIDE 20 MEQ TAB.PRT.SR PO SCH ×3 (10:28→20:47)
[2020-05-22] MEDS: VANCOMYCIN HCL 1,500 MG in NS 250 ML IV SCH ×2 (10:28→20:55)
[2020-05-22] MEDS: NIFEdipine 30 MG TAB.ER.24 PO SCH (10:32)
[2020-05-22] MEDS: FUROSEMIDE 20 MG TABLET PO SCH (10:33)
[2020-05-22] MEDS: DOCUSATE SODIUM 250 MG CAPSULE PO SCH ×2 (10:33→20:48)
[2020-05-22] MEDS: cloNIDine HCL 0.1 MG TABLET PO SCH ×3 (10:34→20:48)
[2020-05-22] MEDS: PANTOPRAZOLE SODIUM 40 MG TAB PO SCH (10:35)
[2020-05-22] MEDS: metFORMIN HCL 500 MG TABLET PO SCH ×2 (10:35→18:34)
[2020-05-22] MEDS: TAMSULOSIN HCL 0.4 MG CAP PO SCH ×2 (10:35→20:48)
[2020-05-22] MEDS: METOPROLOL SUCCINATE 50 MG TAB.SR.24H (TOPROL XL) PO SCH (10:36)
[2020-05-22] MEDS: MULTIVITS,CA,MINERALS/IRON/FA 1 TABLET PO SCH (10:41)
[2020-05-22] MEDS: BALSAM PERU/CASTOR OIL 60 GM OINT...G. TP SCH ×2 (10:42→20:57)
[2020-05-22] MEDS: AMMONIUM LACTATE 12%, 400 ML LOTION TP SCH ×2 (10:44→20:58)
[2020-05-22 12:11] VITALS: BP_SYST 153
--- NOTE | 2020-05-22 12:30 | NUR ---
BLOOD SUGAR LEVEL 119. PATIENT TOLERATING MEALS AND MEDICATIONS WELL, WILL CONTINUE TO MONITOR.
--- NOTE | 2020-05-22 12:46 | NUR ---
Spoke w/ patient's son [phone]-Pt is own decision maker for placement-if he needs SNF placement the son would prefer the [facility] or [facility], the patient will make final decision. The son would prefer return to [facility].
--- NOTE | 2020-05-22 13:35 | NUR ---
WOUND EVALUATION: Late note for 05/22/2020 at 1335 secondary to patient care. Wound Consult received from Dr. Reed. Thank you, Dr. Reed, for the consult. Patient received in a [place] Bed with a mattress, awake, alert, and oriented. Patient is unable to turn independently. Sandro Score is a 15. Past Medical History: Diabetes Mellitus Type 2, Hypertension, Hyperlipidemia, Obesity, BPH, right Total Knee Replacement, right lower extremity Lymphedema. Recent Labs: WBC 8.9, RBC 4.09, hemoglobin 12.1, hematocrit 36.0, POC glucose 119, glucose 120, albumin 2.6, PTT 24.5. Microbiology: Blood culture results x2 in progress. Urine culture results negative. Intrinsic factors that delay wound healing: Diabetes Mellitus Type 2, Hypoalbuminemia. Extrinsic factors that delay wound healing: Decreased mobility. Wound Assessment: 1. Right lateral fifth metatarsal head: Chronic Diabetic Ulcer, present on admission. Wound bed 85% black eschar, 15% yellow eschar. No odor, no drainage. Dry, stable. Periwound intact. Measures 2.3 cm x 5.0 cm. Recommend: [place] eschar with Betadine. Allow to air dry. Cover with foam dressing for protection. Perform site care daily, and as needed for dressing soiling or dislodgement. Also recommend: Encourage and assist patient as needed with repositioning every 2 hours with pillow support and off-load pressure areas with pillows for pressure re-distribution. Offload, elevate and float bilateral heels with pillows. Perform skin care and monitor skin integrity Q shift. Use moisture barrier cream on buttocks and other moisture susceptible areas QID and as needed for soiling.
--- NOTE | 2020-05-22 14:22 | NUR ---
Call placed to Dr Alexandr Felder-requesting ABX for DC-will need SNF placement is pt to continue IV ABX, cannot return to assisted living on IV ABX
--- NOTE | 2020-05-22 14:45 | NUR ---
Spoke w/ Dr Alexandr Felder-he will be in today to write IV recommendation-plan 7 more days of IV ABX-will refer to [facility] and [facility] for SNF placement per son's request.
--- NOTE | 2020-05-22 15:05 | NUR ---
Discharge Planning: DCP faxed pt referral to to [facility] to follow up
[2020-05-22 16:36] VITALS: BP_SYST 158
[2020-05-22] MEDS: MONTELUKAST 10 MG TABLET PO SCH (18:33)
--- NOTE | 2020-05-22 18:36 | NUR ---
PATIENT TOLERATED DINNER WELL. METFORMIN GIVEN FOR BLOOD SUGAR OF 107. CHARGE NURSE MADE AWARE. WILL CONTINUE TO MONITOR. BED IN LOWEST POSITION. CALL LIGHT WITHIN EASY REACH.
--- NOTE | 2020-05-22 19:44 | NUR ---
Initial note: Received report from dayshift RN. Patient is awake in bed watching TV. No acute distress. Even, unlabored breathing on room air. IV site noted, saline locked. Call light with patient. Safety, fall precautions in place. Will continue with plan of care.
[2020-05-22 20:44] VITALS: BP_SYST 142
[2020-05-22] MEDS: PYRIDOXINE HCL 50 MG TABLET PO SCH (20:48)
[2020-05-22] MEDS: ENOXAPARIN SODIUM 40 MG/0.4 ML SYRINGE SUBCUT SCH (20:53)
[2020-05-22] MEDS: MELATONIN 3 MG TABLET PO SCH (20:54)
--- NOTE | 2020-05-22 20:57 | NUR ---
Blood sugar: Blood sugar = 134. Patient resting in bed, no acute distress. Call light with patient. Will continue to monitor.
--- NOTE | 2020-05-22 23:55 | NUR ---
Blood sugar: Blood sugar = 108. Patient resting in bed, no acute distress. Call light with patient. Will continue to monitor.
[2020-05-23 00:23] VITALS: BP_SYST 155
--- NOTE | 2020-05-23 02:41 | NUR ---
Dr. John Felder rounds: MD at bedside to assess patient. MD recommends IV Vancomycin for 2 weeks and a car rental deliverer either inpatient or outpatient to address patient's callus on his right foot, which may be the cause of the right lower leg cellulitis.
--- NOTE | 2020-05-23 04:08 | NUR ---
Blood sugar: Blood sugar = 101. Patient resting in bed, no acute distress. Call light with patient. Will continue to monitor.
--- NOTE | 2020-05-23 06:48 | NUR ---
Closing note: Patient is asleep in bed. No acute distress. Even, unlabored breathing on room air. IV site saline locked. All needs met. Call light with patient. Safety, fall precautions in place. Will endorse care to dayshift RN.
[2020-05-23 08:00] VITALS: BP_SYST 159
--- NOTE | 2020-05-23 08:00 | NUR ---
Note Pt assisted in sitting up in bed to eat his breakfast. No SOB/resp distress or pain/discomfort noted at this time. IV in right forearm intact and patent. Pt next to nurses' station for close observation for needs and care. Call light within reach.
[2020-05-23] MEDS: metFORMIN HCL 500 MG TABLET PO SCH (08:15)
[2020-05-23] MEDS: FUROSEMIDE 20 MG TABLET PO SCH (08:16)
[2020-05-23] MEDS: METOPROLOL SUCCINATE 50 MG TAB.SR.24H (TOPROL XL) PO SCH (08:16)
[2020-05-23] MEDS: TAMSULOSIN HCL 0.4 MG CAP PO SCH (08:16)
[2020-05-23] MEDS: MULTIVITS,CA,MINERALS/IRON/FA 1 TABLET PO SCH (08:16)
[2020-05-23] MEDS: PANTOPRAZOLE SODIUM 40 MG TAB PO SCH (08:16)
[2020-05-23] MEDS: DOCUSATE SODIUM 250 MG CAPSULE PO SCH (08:16)
[2020-05-23] MEDS: cloNIDine HCL 0.1 MG TABLET PO SCH (08:16)
[2020-05-23] MEDS: POTASSIUM CHLORIDE 20 MEQ TAB.PRT.SR PO SCH (08:17)
[2020-05-23] MEDS: NIFEdipine 30 MG TAB.ER.24 PO SCH (08:17)
[2020-05-23] MEDS: VANCOMYCIN HCL 1,500 MG in NS 250 ML IV SCH (08:26)
[2020-05-23] MEDS: TERBINAFINE HCL 1%, 24 GM antifungal CREAM TP SCH (08:27)
[2020-05-23] MEDS: BALSAM PERU/CASTOR OIL 60 GM OINT...G. TP SCH (08:27)
[2020-05-23] MEDS: AMMONIUM LACTATE 12%, 400 ML LOTION TP SCH (08:27)
[2020-05-23 10:35] VITALS: BP_SYST 145
[2020-05-23] MEDS ORDERED: FLU VACC QS2020-21(65UP)/PF 0.7 ML/SYRINGE I.M. PRN (11:00)
--- NOTE | 2020-05-23 11:00 | NUR ---
Note Pt's son was notified by case reviewer and RN that pt will be transferred to [facility] today, there is a bed available at this time. Pt's son was given updates throughout the shift. Pt sitting on side of bed to get pressure off his bed. MRI dept called and pt to have MRI of lower extremity. No needs noted at this time. Call light within reach.
[2020-05-23 12:00] VITALS: BP_SYST 131
--- NOTE | 2020-05-23 12:00 | NUR ---
Note Pt in MRI dept. Blood sugar not taken.
--- NOTE | 2020-05-23 12:05 | NUR ---
Note Pt off the floor at 1140am for MRI of lower extremity. Called pt's son Jam and left message. Pt was given FLU vaccine - pt's son aware and pt's son also answered MRI form questions.
--- NOTE | 2020-05-23 13:10 | NUR ---
Note Pt back on floor and assisted back to bed. Pt sitting up to eat his luinch. Pt's son called to notify him of pt's return to room. Left message.
--- NOTE | 2020-05-23 14:15 | NUR ---
Note Pt's son called and he stated he would bring clothes and shoes for pt. Pt's report was given to Andree FRY at [facility] at 1045am. Discharge packet ready and at nurses' station. Pt's IV in right forearm was dc'd and site benign. No bleeding/swelling/drainage or tenderness noted at site. Pt was checked on q1' and PRN all shift for needs and care. Pt was maintained with safety precautions all shift. Pt stable. Call light within reach.
--- NOTE | 2020-05-23 14:30 | NUR ---
Note Pt's son came to hospital to pick pt with discharge paperwork/belongings and take him to [facility]. Pt dressed in street clothes and pt checked side table and drawers for belongings. Pt stable. Pt denies any SOB/resp distress or pain/discomfort. Pt off the floor via wheelchair. Right lower leg skin intact and swelling decreased significantly since admission, per pt's statement.
== END 2020-05-23 14:30 | DRG 871 ==
LOC: SED 10:32 → STU 11:26 → UNDOADMIN 11:26 → STU 13:25 → SMU 05-19 17:07
PROVIDERS: ADMIT Internal Medicine; ATTEND Internal Medicine
DX: A41.9 Sepsis, unspecified organism (principal); G93.41 Metabolic encephalopathy; L03.115 Cellulitis of right lower limb; E44.0 Moderate protein-calorie malnutrition; I89.0 Lymphedema, not elsewhere classified; I10 Essential (primary) hypertension; E11.9 Type 2 diabetes mellitus without complications; N40.0 Benign prostatic hyperplasia without lower urinary tract symptoms; E78.5 Hyperlipidemia, unspecified; E66.9 Obesity, unspecified; Z96.653 Presence of artificial knee joint, bilateral; R41.0 Disorientation, unspecified; E11.649 Type 2 diabetes mellitus with hypoglycemia without coma; B35.3 Tinea pedis; E11.621 Type 2 diabetes mellitus with foot ulcer; Z20.828 Contact with and (suspected) exposure to other viral communicable diseases; E87.6 Hypokalemia; Z79.899 Other long term (current) drug therapy; Z68.32 Body mass index [BMI] 32.0-32.9, adult
CPT/HCPCS: 36415; 71045; 73720; 78580-TC; 80048; 80053; 80202-TC; 80307; 81003; 82962; 83036; 83605; 83735-TC; 83880; 84439; 84443-TC; 84484; 85025; 85610-TC; 85651-TC; 85730-TC; 86140; 87040-TC; 87086; 93005; 93971; 97110-GP; 97112-GP; 97163; 97530-GP; 99285; A9540; G0378; J1650; J1815; J1885; J2543; J3370; J7030; J7050; J7060